=== PATIENT | female | born 1940 | race American Indian/Alaskan Native ===

== ENCOUNTER 2021-11-06 14:54 | Emergency (ER) | payer MEDICAID, OTHER ==
[~2021-11-06] VITALS: Ht 147.3 cm; Wt 54.4 kg
[2021-11-06 15:59] VITALS: BP 148/57
[2021-11-06] MEDS ORDERED: ACET-1080 PO (16:43)
[2021-11-06] MEDS ORDERED: MECL25CH38 PO (16:43)
== END 2021-11-06 17:02 | disposition home or self-care (01) ==
LOC: ER 14:54
DX: S76.012A Strain of muscle, fascia and tendon of left hip, initial encounter (principal); S70.12XA Contusion of left thigh, initial encounter; R51.9 Headache, unspecified; I10 Essential (primary) hypertension; E78.5 Hyperlipidemia, unspecified; Z98.51 Tubal ligation status; W19.XXXA Unspecified fall, initial encounter; Y93.89 Activity, other specified; Y92.89 Other specified places as the place of occurrence of the external cause; Y99.8 Other external cause status
CPT/HCPCS: 70450; 73502